=== PATIENT | female | born 1970 | race Caucasian/White ===

== ENCOUNTER 2018-02-24 09:12 | Inpatient (IN) | payer OTHER ==
[~2018-02-24] VITALS: Ht 152.4 cm; Wt 63.5 kg
== END 2018-03-25 11:21 | disposition home or self-care (01) | DRG 331 ==
LOC: O/R 03-22 08:30 → SURH 03-22 21:42
PROVIDERS: Colon & Rectal Surgery
PROC: 0DTP4ZZ Resection of Rectum, Percutaneous Endoscopic Approach (ICD-10-PCS; 2018-03-22)
PROC: 07TC4ZZ Resection of Pelvis Lymphatic, Percutaneous Endoscopic Approach (ICD-10-PCS; 2018-03-22)
PROC: 0D1B4Z4 Bypass Ileum to Cutaneous, Percutaneous Endoscopic Approach (ICD-10-PCS; 2018-03-22)
PROC: 0DJD8ZZ Inspection of Lower Intestinal Tract, Via Natural or Artificial Opening Endoscopic (ICD-10-PCS; 2018-03-22)
PROC: 0DTN4ZZ Resection of Sigmoid Colon, Percutaneous Endoscopic Approach (ICD-10-PCS; principal; 2018-03-22 08:30)
DX: C20 Malignant neoplasm of rectum (principal); D50.0 Iron deficiency anemia secondary to blood loss (chronic); R73.02 Impaired glucose tolerance (oral)

== ENCOUNTER 2018-12-14 06:00 | Day surgery (SDC) | payer OTHER | END 2018-12-14 14:30 | disposition home or self-care (01) | LOC: CIR.AMB 06:00 | DX: K60.1 Chronic anal fissure (principal); K62.4 Stenosis of anus and rectum ==

== ENCOUNTER 2019-01-16 10:32 | Inpatient (IN) | payer OTHER ==
[~2019-01-16] VITALS: Ht 152.4 cm; Wt 68.9 kg
[2019-02-03] MEDS ORDERED: OXYC1TAB9 PO (18:30)
[2019-02-03] MEDS ORDERED: IMODIUM A-D2 MG PO (18:32)
== END 2019-02-03 18:50 | disposition home or self-care (01) | DRG 330 ==
LOC: SURG 01-25 07:30 → O/R 02-01 05:28 → SURG 02-01 07:30
PROVIDERS: ADMIT Colon & Rectal Surgery
PROC: 0DQB4ZZ Repair Ileum, Percutaneous Endoscopic Approach (ICD-10-PCS; principal; 2019-02-01 10:15)
DX: Z43.2 Encounter for attention to ileostomy (principal); C20 Malignant neoplasm of rectum; D50.0 Iron deficiency anemia secondary to blood loss (chronic); R73.01 Impaired fasting glucose; K62.4 Stenosis of anus and rectum

== ENCOUNTER 2019-05-12 09:58 | Day surgery (SDC) | payer OTHER ==
[~2019-05-12 09:58] MED LIST: IMODIUM A-D2 MG PO; OXYC1TAB9 PO
== END 2019-05-12 15:40 | disposition home or self-care (01) ==
LOC: AMB-ENDOS 09:58
DX: C20 Malignant neoplasm of rectum (principal)

== ENCOUNTER 2020-06-14 09:22 | Day surgery (SDC) | payer OTHER | END 2020-06-14 14:05 | disposition home or self-care (01) | LOC: AMB-ENDOS 09:22 | PROVIDERS: ATTEND Colon & Rectal Surgery | DX: K62.89 Other specified diseases of anus and rectum (principal); Z20.828 Contact with and (suspected) exposure to other viral communicable diseases ==